=== PATIENT | female | born 1975 | race Caucasian/White ===

== ENCOUNTER 2017-08-20 20:31 | Emergency (ER) | payer MEDICAID, SELFPAY ==
--- NOTE | 2017-08-20 22:36 | XR_ITS ---
XR chest 2V HISTORY: ITS.REASON: cough, SOA, aches, smoker ORDERING PHYSICIAN: Shavonne Penn PATIENT AGE: 41 years COMPARISON: None available FINDINGS: The cardiomediastinal silhouette and pulmonary vascularity are within normal limits. The lungs are clear without infiltrates, suspicious nodules, or pleural effusions. No acute bony abnormalities. IMPRESSION: Negative chest, no acute finding
[2017-08-20 22:41] VITALS: BP 142/102; PULSE 71; RESP 18; TEMP 36.8; O2SAT 100; BMI 27.4
--- NOTE | 2017-08-20 22:58 | HMH.EDUTC ---
[facility] [place] Clinical Impression: Tobacco abuse, Encounter to obtain excuse from work Acute bronchitis Qualifiers: Bronchitis organism: unspecified organism Qualified Code(s): J20.9 - Acute bronchitis, unspecified Disposition: Home, Self-Care Condition on Discharge: Good Instructions: DI for Acute Bronchitis, How to Quit Tobacco Products Additional Instructions: * STOP SMOKING!!!! * start antibioti SAMIA Be sure to complete entire prescription even if feeling better. * Monitor Temp. Follow up if fever develops * humidifier/vaporizer/hot steamy shower * Inhaler every 4-6 hours as needed like we discussed. As you know, Should help open airways and improve cough, wheezing, shortness of breath. * Mucinex during the day for your cough and cough suppressant only at night. Be sure to drink lots of water. Insurance may not cover a prescription of mucinex. Might be cheaper to get 400mg tablets and take 2 tablets morning, midday and evening all with lots of water. * Promethazine DM cough syrup will cause drowsiness. Use it only at night. No driving, operating machinery or caring for small children after taking it. * Start steroid SAMIA. Helps with inflammation therefore, cough and wheezing. Follow directions on package. Rvwd side effects. Pt reports they have taken them before. Prescriptions: Albuterol Sulfate [Albuterol HFA Inhaler] 1 - 2 puffs IH Q4-6H PRN #1 inh PRN Reason: Shortness Of Breath Or Wheezing Azithromycin [Z-Max 250mg Tab] 250 mg PO UD DOSE PK #6 tab predniSONE [Deltasone 10mg tablet] 10 mg PO BID #10 tab Promethazine/Dextromethorphan [Promethazine-Dm Syrup] 10 ml PO HS PRN #10 ml PRN Reason: Cough Referrals: Opal Tomlin APRN [Primary Care Provider] - (Follow up IMMEDIATELY for new or worsening symptoms OR no noticeable improvement over the next 48-72 hours. 911 for difficulty breathing.) Forms: Work/School Release Time of Disposition: 23:10 Medical Decision Making Vital Signs: 08/20/17 22:41 Temperature 98.2 F Temperature Source Temporal Artery Scan Pulse Rate [Right Radial] 71 Respiratory Rate 18 Blood Pressure [Right Arm] 142/102 Blood Pressure Mean [Right Arm] 115 Blood Pressure Source [Right Arm] Automatic Cuff Blood Pressure Position [Right Arm] Sitting 02 Sat by Pulse Oximetry 100 Oxygen Delivery Method Room Air Orders (Tests/Meds): ORDERS Category Date Time Status CXR 2 view (NOT portable) [XR chest 2V] Stat Exams 08/20/17 22:36 Taken - Radiology Data #1 Image(s): Chest Image Reviewed: Yes I reviewed the patient's radiology image w/the ED provider Preliminary Findings: Normal/NAD Rvwd with DAVID Simmons. no acute findings. Wants pt to have steroids, zpack and inhaler. - Jesus Inquiry Pt receiving controlled substance: No [facility] [place] - General Stated complaint: trouble breathing weak cough Time Seen by Provider: 08/20/17 22:59 Mode of Arrival: Family Vehicle Source of Information: Patient Limitations: No Limitations Description of Symptoms (Recalled from Triage Doc. by RN): PT C/O SOB, COUGHING, AND WEAKNESS. HEENT Symptoms (Recalled from RN notes): No Resp Symptoms (Recalled from RN notes): Yes (SOB,COUGH) Skin Symptoms (Recalled from RN notes): No MS Symptoms (Recalled from RN notes): No Functional Status (Recalled from RN notes): NA - History of Present Illness Provider Complaint: c/o nonprod cough x 2 weeks now. Doesn't feel like working tomorrow and requesting excuse. Started w/ what pt thought might have been the flu. N/V, fever, aches, chills fatigue that kept her in bed for 3 days. That resolved but cough started. Coughing primarily at night. Feels SOA when walking up and down steps at work. denies wheezing. Dayquil and nyquil help but not resolving. Works in a [employer]. Tobacco user. - Related Data Previous Rx's Medication Instructions Recorded Albuterol Sulfate [Albuterol HFA 1 - 2 puffs IH Q4-6H PRN #1 inh 08/20/17 Inhale
--- NOTE | 2017-08-20 23:06 | ED_ITS ---
[facility] – [place] Disposition Clinical Impression: Tobacco abuse, Encounter to obtain excuse from work Acute bronchitis Qualifiers: Bronchitis organism: unspecified organism Qualified Code(s): J20.9 - Acute bronchitis, unspecified Disposition: Home, Self-Care Condition on Discharge: Good Instructions: DI for Acute Bronchitis, How to Quit Tobacco Products Additional Instructions: * STOP SMOKING!!!! * start antibioti SAMIA Be sure to complete entire prescription even if feeling better. * Monitor Temp. Follow up if fever develops * humidifier/vaporizer/hot steamy shower * Inhaler every 4-6 hours as needed like we discussed. As you know, Should help open airways and improve cough, wheezing, shortness of breath. * Mucinex during the day for your cough and cough suppressant only at night. Be sure to drink lots of water. Insurance may not cover a prescription of mucinex. Might be cheaper to get 400mg tablets and take 2 tablets morning, midday and evening all with lots of water. * Promethazine DM cough syrup will cause drowsiness. Use it only at night. No driving, operating machinery or caring for small children after taking it. * Start steroid SAMIA. Helps with inflammation therefore, cough and wheezing. Follow directions on package. Rvwd side effects. Pt reports they have taken them before. Prescriptions: Albuterol Sulfate [Albuterol HFA Inhaler] 1 - 2 puffs IH Q4-6H PRN #1 inh PRN Reason: Shortness Of Breath Or Wheezing Azithromycin [Z-Max 250mg Tab] 250 mg PO UD DOSE PK #6 tab predniSONE [Deltasone 10mg tablet] 10 mg PO BID #10 tab Promethazine/Dextromethorphan [Promethazine-Dm Syrup] 10 ml PO HS PRN #10 ml PRN Reason: Cough Referrals: Opal Tomlin APRN [Primary Care Provider] - (Follow up IMMEDIATELY for new or worsening symptoms OR no noticeable improvement over the next 48-72 hours. 911 for difficulty breathing.) Forms: Work/School Release Time of Disposition: 23:10 Medical Decision Making Vital Signs: 08/20/17 22:41 Temperature 98.2 F Temperature Source Temporal Artery Scan Pulse Rate [Right Radial] 71 Respiratory Rate 18 Blood Pressure [Right Arm] 142/102 Blood Pressure Mean [Right Arm] 115 Blood Pressure Source [Right Arm] Automatic Cuff Blood Pressure Position [Right Arm] Sitting 02 Sat by Pulse Oximetry 100 Oxygen Delivery Method Room Air Orders (Tests/Meds): ORDERS Category Date Time Status CXR 2 view (NOT portable) [XR chest 2V] Stat Exams 08/20/17 22:36 Taken - Radiology Data #1 Image(s): Chest Image Reviewed: Yes I reviewed the patient's radiology image w/the ED provider Preliminary Findings: Normal/NAD Rvwd with DAVID Simmons. no acute findings. Wants pt to have steroids, zpack and inhaler. - Jesus Inquiry Pt receiving controlled substance: No [facility] [place] HPI - General Stated complaint: trouble breathing weak cough Time Seen by Provider: 08/20/17 22:59 Mode of Arrival: Family Vehicle Source of Information: Patient Limitations: No Limitations Description of Symptoms (Recalled from Triage Doc. by RN): PT C/O SOB, COUGHING , AND WEAKNESS. HEENT Symptoms (Recalled from RN notes): No Resp Symptoms (Recalled from RN notes): Yes (SOB,COUGH) Skin Symptoms (Recalled from RN notes): No MS Symptoms (Recalled from RN notes): No Functional Status (Recalled from RN notes): NA - History of Present Illness Provider Complaint: c/o nonprod cough x 2 weeks now. Doesn't feel like working tomorro
[2017-08-20 23:10] VITALS: BP 139/85; PULSE 75; RESP 18; TEMP 36.9; O2SAT 100
== END 2017-08-20 23:11 | disposition home or self-care (01) ==
PROVIDERS: Emergency Provider Nurse Practitioner Family; Family Provider Nurse Practitioner Family; PCP Nurse Practitioner Family
DX: J20.9 Acute bronchitis, unspecified (principal); F17.210 Nicotine dependence, cigarettes, uncomplicated; F41.8 Other specified anxiety disorders
CPT/HCPCS: 71046; 99202

== ENCOUNTER 2020-09-24 13:10 | Emergency (ER) | payer SELFPAY ==
[2020-09-24 13:10] VITALS: BP 162/90; PULSE 82; RESP 19; TEMP 37; O2SAT 98; BMI 27.9
[2020-09-24 13:30] LABS: Apearance,Urine Cloudy (Clear); Color,Urine Dark Yellow (Yellow)
--- NOTE | 2020-09-24 13:30 | HMH.EDUTC ---
[facility] – [place] Disposition Clinical Impression: UTI (urinary tract infection) Qualifiers: Urinary tract infection type: site unspecified Hematuria presence: with hematuria Qualified Code(s): N39.0 - Urinary tract infection, site not specified; R31.9 - Hematuria, unspecified Disposition: Home, Self-Care Condition on Discharge: Good Instructions: Urinary Tract Infection, DI for Urinary Tract Infection (UTI), Trimethoprim/Sulfamethoxazole (Alternative Therapy), Phenazopyridine Additional Instructions: *Increase fluids. Water not Soda or Tea *Start antibiotic immediately and be sure to take as ordered for the FULL length of time although you should start to see improvement over the next 48 hours *Pyridium as needed Remember this medication will turn your urine Headrick. This is normal but it will stain what ever it gets on *You should not use Pyridium for more than 48 hours. If so , follow up with your primary physician to review urine culture and ensure that antibiotic is adequate for infection *Be SURE to follow up anytime for new or worsening symptoms with your family doctor. AND in 48 hours for urine culture results with your family doctor, if you do not have a doctor then you may call back to the [facility] for urine culture results and further treatment. We do recommend that you choose and establish care with a Primary Care Physician. AND follow up with them in 10-14 days to repeat UA to ensure infection is resolved and blood no longer present *Be sure to let your PCP know that we sent urine cultures from the [facility] so they can follow up to ensure that you area the on the correct antibiotic Call your doctor office and make appointment for 48 hours (2 days from today) to follow up and get the results of your urine culture and further treatment Prescriptions: Sulfamethoxazole/Trimethoprim [Bactrim DS tablet] 1 each PO BID 10 Days #20 tab Transmission Status: Pending to [id number] Phenazopyridine HCl [Pyridium 200mg Tablet] 200 pow PO TID #6 tab Transmission Status: Pending to [id number] Referrals: PCPLashae [Primary Care Provider] - As needed Time of Disposition: 13:41 Medical Decision Making - Jesus Inquiry Pt receiving controlled substance: No Jesus was queried for this patient: No Vital Signs: 09/24/20 13:10 Temperature 98.6 F Temperature Source Oral Pulse Rate [Right Brachial] 82 Respiratory Rate 19 Blood Pressure [Right Arm] 162/90 H Blood Pressure Mean [Right Arm] 114 Blood Pressure Source [Right Arm] Automatic Cuff Blood Pressure Position [Right Arm] Sitting 02 Sat by Pulse Oximetry 98 Oxygen Delivery Method Room Air - Lab Data Lab results reviewed: Yes: I reviewed the patient's lab results. [facility] [place] HPI - General Stated complaint: Possible UTI Time Seen by Provider: 09/24/20 13:30 Mode of Arrival: Ambulatory Source of Information: Patient Limitations: No Limitations Description of Symptoms (Recalled from Triage Doc. by RN): PATIENT C/O BURNING AND FREQUENCY WITH URINATION X 3 DAYS HEENT Symptoms (Recalled from RN notes): No Resp Symptoms (Recalled from RN notes): No Skin Symptoms (Recalled from RN notes): No MS Symptoms (Recalled from RN notes): No Functional Status (Recalled from RN notes): WNL - History of Present Illness Provider Complaint: Patient states that she has been having feeling of frequency and urgency and burning with urination State that she will go then shortly later she feels like she has to go again like she has had before with UTI - Related Data Previous Rx's Medication Instructions Recorded Levothyroxine Sodium 75 mcg PO DAILY #30 tab 12/21/17 [Levothyroxine 75mcg (0.075mg) Tab] Azithromycin [Z-Max 250mg Tab*] 250 mg PO UD DOSE PK #6 tab 11/26/18 Levothyroxine Sodium 75 mcg PO DAILY #30 tab 11/26/18 [Levothyroxine 75mcg (0.075mg) Tab] Phenazopyridine HCl [Pyridium 200 pow PO TID #6 tab 09/24/20 200mg Tablet] Sulfamethoxazole/Trimethoprim 1 each PO BID 10 Days #20
[2020-09-24 13:31] LABS: Bilirubin,Urine Negative (Negative); Blood, Urine Trace (Negative); Glucose,Urine (UA) Negative (Negative); Ketones,Urine Negative (Negative); Protein,Urine Trace (Negative); UTC Leukocyte Esterase,Urine Negative (Negative); UTC Nitrate,Urine Positive (Negative); Urobilinogen,Urine 0.2 EU/dl (0.2)
[2020-09-24 13:43] VITALS: BP 162/90; PULSE 82; RESP 19; TEMP 37; O2SAT 98
== END 2020-09-24 13:46 | disposition home or self-care (01) ==
PROVIDERS: Emergency Provider Nurse Practitioner
DX: N30.01 Acute cystitis with hematuria (principal); F41.8 Other specified anxiety disorders; F17.210 Nicotine dependence, cigarettes, uncomplicated
CPT/HCPCS: 81003; 87086; 87088; 87186; 99202; G0463

== ENCOUNTER 2024-03-07 16:15 | Emergency (ER) | payer SELFPAY ==
[2024-03-07 16:31] VITALS: BP 181/92; PULSE 77; RESP 20; TEMP 36.8; O2SAT 100; BMI 29.2
--- NOTE | 2024-03-07 16:51 | ED_ITS ---
Discharge Plan Disposition Patient Disposition: Home, Self-Care Condition: Good Prescriptions Prescriptions: New clindamycin HCl 300 mg capsule 300 mg PO TID Qty: 30 0RF Referrals Follow up/Referrals: Provider,Referral, MD [Primary Care Provider] - See instructions Activity Restrictions/Add. Instructions Additional Instructions/Restrictions: Salt water gargles Take medication as prescribed Follow up with Dentist for further treatment and evaluation Over the counter Motrin and/or Tylenol as needed for pain Clinical Impressions Clinical Impression: Dental abscess Instructions Patient Instructions: DI for Tooth Abscess, Tooth Abscess, Clindamycin Print Language Print Language: Kinyarwanda Discharge ED Provider: Melodie Mcpherson [facility] [place] General Stated complaint: Right jaw swollen,lymphnodes in neck swollen Mode of Arrival: Ambulatory Time Seen by Provider: 03/07/24 16:51 Description of Symptoms (Recalled from Triage Doc. by RN): TOOTH POSSIBLY INFECTED ON LOWER RIGHT SIDE, INCLUDING LIP SWOLLEN AND NECK. TAKING OTC PAIN MEDICATION HEENT Symptoms (Recalled from RN notes): Yes (TOOTH) Resp Symptoms (Recalled from RN notes): No Skin Symptoms (Recalled from RN notes): No MS Symptoms (Recalled from RN notes): No Functional Status (Recalled from RN notes): WNL History of Present Illness Provider Complaint: Patient states that she has several broken and decaying teeth that needs to be removed States that the swelling has got worse and feels like it is getting larger on her right jaw area to under jaw line States she was worried the infection and swelling would continue to get worse so she came in to get some antibitoics until she can get into the dentist Denies trouble swallowing Related Data Previous Rx's ?Medication ?Instructions ?Recorded clindamycin HCl 300 mg capsule 300 mg PO TID #30 caps 03/07/24 Allergies Allergy/AdvReac Type Severity Reaction Status Date / Time ceftriaxone [From ROCEPHIN] Allergy Unknown SHOCK Verified 02/03/18 17:43 Worker's Comp Is this a Worker's Comp case?: No [facility] Disclaimer: The information contained in this section may have been updated after the patient was seen, as this information can be updated by other users. Social History Smoking Status: Current every day smoker tobacco type: cigarettes packs per day: 1 alcohol intake: never current occupational status: other Travel in the last 8 weeks: None ROS Obtained: Yes All systems reviewed & no additional complaints except as documented and Yes Systems reviewed as appropriate & no additional complaints except as documented Constitutional Constitutional: Reports system reviewed and no additional complaints, except as documented, Reports as per HPI, Denies body ache, Denies chills and Denies fever(s) ENT Ears, Nose, Mouth, and Throat: Reports system reviewed and no additional complaints, except as documented, Reports as per HPI and Reports dental pain Cardiovascular Cardiovascular: Reports system reviewed and no additional complaints, except as documented and Reports as per HPI Respiratory Respiratory: Reports system reviewed and no additional complaints, except as documented and Reports as per HPI Gastrointestinal Gastrointestingal: Reports system reviewed and no additional complaints, except as documented and as per HPI Physical Exam General General appearance: alert and in no apparent distress ENT ENT exam: Present mucous membranes moist Expanded ENT Exam Teeth exam: Present dental caries, fractured tooth #, dental tenderness # and gingival swelling (multiple broken and decaying teeth, swelling in gumline and jaw area) Respiratory Respiratory exam: Present normal lung sounds bilaterally; Absent respiratory distress or wheezes Cardiovascular Cardiovascular exam: Present regular rate, normal rhythm and normal heart sounds Neurological Exam Neurological exam: Present alert, oriented X3 and normal gait Medical Decision Making Medical Records Screening: Per USPSTF and CDC recommendations, given the prevalence of disease in our region, it is our hospital?s policy to screen for HIV and viral Hepatitis for all patients aged 18 and over and those with ongoing risk factors. Jesus Inquiry Pt receiving controlled substance: No Jesus was queried for this patient: No Vital Signs: 03/07/24 16:31 Temperature 98.3 F Temperature Source Oral Pulse Rate [Left Brachial] 77 Respiratory Rate 20 Blood Pressure [Left Arm] 181/92 H Blood Pressure Mean [Left Arm] 121 02 Sat by Pulse Oximetry 100
[2024-03-07] MEDS: TETRACAINE/BENZOCAINE/BUTAMBEN 56 GM SPRAY TP (17:16)
[2024-03-07] MEDS: LIDOCAINE 2% VISCOUS SOL 15ML UDC 15 ML PO (17:16)
[2024-03-07 17:22] VITALS: BP 181/92; PULSE 77; RESP 20; TEMP 36.8
== END 2024-03-07 17:23 | disposition home or self-care (01) ==
PROVIDERS: Emergency Provider Nurse Practitioner
DX: K04.7 Periapical abscess without sinus (principal)
CPT/HCPCS: 99204; 99212; G0463